=== PATIENT | female | born 1955 | race Caucasian/White ===

== ENCOUNTER 2017-09-05 07:50 | Day surgery (SDC) | payer OTHER ==
[~2017-09-05] VITALS: Ht 167.6 cm; Wt 79.5 kg
[2017-09-05] VITALS (7 sets, daily range): BP systolic 143–161; BP diastolic 81–98; PULSE 68–84; RESP 18–20; TEMP 98–98.1; O2SAT 92–95
[~2017-09-05 07:50] MED LIST: CODE30TA PO; ELBA1TAB; EMPA1TAB3 PO; ERGO1CAP30 PO; HYDR-3133 PO; LACT10SO PO; LACTCAP8 PO; LEVO.125 PO; LOSA100T PO; MILK140C2; OMEP20TA PO; REST15CA PO; VALT500T PO
[2017-09-05 08:36] LABS: AUTOMATED NEUTROPHIL # 2.8 TH/MM3 (1.8-7.7); BASOPHIL % 0.8 % (0.0-2.0); EOSINOPHIL # 0.1 TH/MM3 (0-0.4); EOSINOPHIL % 1.9 % (0.0-4.0); HEMATOCRIT 38.1 % (35.0-46.0); LYMPH % 14.6 % (9.0-44.0); LYMPHOCYTE # 0.6 TH/MM3 (1.0-4.8); MEAN CELL VOLUME 79.3 FL (80.0-100.0); MEAN CORPUSCULAR HEMOGLOBIN 25.8 PG (27.0-34.0); MEAN CORPUSCULAR HGB CONC 32.5 % (32.0-36.0); MONO % 10.3 % (0.0-8.0); NEUT % 72.4 % (16.0-70.0); PLATELET COUNT 73 TH/MM3 (150-450); WHITE BLOOD COUNT 3.9 TH/MM3 (4.0-11.0)
[2017-09-05 08:45] LABS: PROTHROMBIN TIME - PATIENT 11.6 SEC (9.8-11.6)
[2017-09-05] MEDS ORDERED: SODIUM CHLOR 0.9% 1000 ML IV SCH (09:00)
[2017-09-05] MEDS ORDERED: LIDOCAINE HCL 1% 30 ML VIAL ONE (09:18)
[2017-09-05 09:20] LABS: HEMO FLAGS AUTO DIFF
[2017-09-05 09:22] LABS: PLATELET ESTIMATE SMEAR LOW (NORMAL); PLATELET MORPHOLOGY ENLARGED (NORMAL); SCAN/DIFF AUTO DIFF CONFIRMED
[2017-09-05] MEDS ORDERED: MIDAZOLAM HCL 2 MG/2 ML VIAL ONE (09:48)
--- NOTE | 2017-09-05 10:23 | PD.RAD ---
Post CT Procedure Prog Note Pre Procedure Diagnosis: (1) Cirrhosis Post Procedure Diagnosis: (1) Cirrhosis Procedure Date: Sep 05, 2017 Supervising Radiologist: Blake Salgado Proceduralist/Assist: hussein staton Estimated blood loss: none Anesthesia: Conscious Sedation Plan of Activity Patient to Unit: ROPU Patient Condition: Good See PACS Report for procedural detail/treatment Blake Salgado MD Sep 05, 2017 10:23
--- NOTE | 2017-09-05 15:37 | RADRPT ---
EXAM DATE/TIME: 09/05/2017 09:52 [place] COMPARISON: No previous studies available for comparison. INDICATIONS : Hepatitis C. SEDATION TIME: 15 minutes BIOPSY SITE: Right side of liver. MEDICATION(S): 1.) 2 mg midazolam (Versed) IV 2.) 100 mcg fentanyl (Sublimaze) DEVICE(S): 1.) 18 gauge Temno core biopsy needle MEDICAL HISTORY : Hepatitis C. Diabetes mellitus type 2. SURGICAL HISTORY : None. ENCOUNTER: Initial ACUITY: 1 day PAIN SCORE: 0/10 LOCATION: Right liver region. A total of one core specimen(s) were obtained and sent to the laboratory for pathologic evaluation. PROCEDURE: 1. CT guided liver biopsy. Prior to the procedure informed consent was obtained. Any appropriate prior imaging studies were rev iewed. Using automated exposure control and adjustment of the mA and/or kV according to patient size, radiat ion dose was kept as low as reasonably achievable to obtain optimal diagnostic quality images. DICOM format image data is available electronically for review and comparison. The site was prepped in a sterile fashion. Full sterile technique was used, including cap, mask, maría rile gloves and gown and a large sterile sheet. Hand hygiene and 2% chlorhexidine and/or betadine/al cohol prep was utilized per protocol for cutaneous antisepsis. The skin and subcutaneous tissues wer e infiltrated with local anesthetic solution. With CT guidance the previously identified target was localized. Biopsy was performed using the presc ribed needle as above. Adequate hemostasis was obtained with compression at the puncture site. Follow-up CT scan reveals no hemorrhage. Minimal residual ascites. The patient tolerated the procedure well and there were no complications. The patient was returned to the Radiology Outpatient Unit in stable condition. CONCLUSION: Uncomplicated CT guided biopsy of nodular cirrhotic appearing liver. Blake Salgado MD on September 05, 2017 at 15:36 Board Certified Radiologist. This report was verified electronically.
== END 2017-09-05 13:50 | disposition home or self-care (01) ==
LOC: HRAD 07:50 → HRIP 07:56 → HRAD 13:50
PROVIDERS: ATTEND Specialist
DX: C22.0 Liver cell carcinoma (principal); B19.20 Unspecified viral hepatitis C without hepatic coma; K74.60 Unspecified cirrhosis of liver; E11.9 Type 2 diabetes mellitus without complications
CPT/HCPCS: 47000; 77012; 85025; 85610; 85730; 88307; 88313; 88342; J2250; J3010; J7030; 88341

== ENCOUNTER 2018-05-19 07:48 | Day surgery (SDC) | payer OTHER ==
[~2018-05-19 07:48] MED LIST changes: -CODE30TA PO; -ELBA1TAB; -EMPA1TAB3 PO; -ERGO1CAP30 PO; -LACT10SO PO; -LACTCAP8 PO; -MILK140C2; -OMEP20TA PO; -VALT500T PO
[2018-05-19 08:15] VITALS: BP 98/62; PULSE 60; RESP 16; TEMP 97.1; O2SAT 93
== END 2018-05-19 14:27 | disposition home or self-care (01) ==
LOC: HRAD 07:48 → HRIP 07:49 → HRAD 14:27
PROVIDERS: ATTEND Specialist
DX: R18.8 Other ascites (principal); Z53.9 Procedure and treatment not carried out, unspecified reason